=== PATIENT | female | born 1975 | race Caucasian/White ===

== ENCOUNTER → 2022-04-28 | Day surgery (SDC) | payer OTHER ==
[~2022-04-28] VITALS: Ht 170.2 cm; Wt 99.8 kg
[~2022-04-28] MED LIST: ACETAMINOPHEN500 M1 PO; ATORVASTATIN CA10 MG PO; COLACE100 MG PO; FLOMAX0.4 MG PO; FLUOXETINE HCL20 M1 PO; LORCET PLUS 7.1 EACH PO; MOTRIN600 MG PO; OXY-IR 5MG5 MG PO; PHENERGAN25 M1 PO
[2022-04-28 09:44] LABS: HCG (URINE) SCREEN NEGATIVE (NEGATIVE)
== END | disposition home or self-care (01) ==
LOC: FAS 09:20
PROVIDERS: Anesthesiology
DX: K80.10 Calculus of gallbladder with chronic cholecystitis without obstruction (principal); E78.00 Pure hypercholesterolemia, unspecified; K21.9 Gastro-esophageal reflux disease without esophagitis; F41.9 Anxiety disorder, unspecified; Z88.8 Allergy status to other drugs, medicaments and biological substances; K66.0 Peritoneal adhesions (postprocedural) (postinfection)
CPT/HCPCS: 84703; 93005; J1100; J1644; J2250; J2405; J2704; J3010; J7120